=== PATIENT | male | born 1970 | race Caucasian/White ===

== ENCOUNTER 2021-04-16 06:43 | Emergency (ER) | payer BC ==
[~2021-04-16 06:43] MED LIST: AUGMENTIN 875-1 EACH PO; FLONASE 0.05% N16 GM; IBUPROFEN600 MG PO; MOBIC7.5 MG PO; NORCO 5-325 TA1 EACH PO; NORFLEX 100 MG100 MG PO; PSEUDOEPHEDRINE60 MG PO; ULTRAM50 MG PO; Voltaren Gel 1% TOP
[2021-04-16] MEDS ORDERED: CYCLOBENZAPRINE5 MG PO (08:02)
[2021-04-16] MEDS ORDERED: NAPROSYN500 MG PO (08:02)
== END 2021-04-16 08:30 | disposition home or self-care (01) ==
LOC: ER1 06:43
DX: S39.012A Strain of muscle, fascia and tendon of lower back, initial encounter (principal); M51.37 Other intervertebral disc degeneration, lumbosacral region; F17.200 Nicotine dependence, unspecified, uncomplicated; X50.0XXA Overexertion from strenuous movement or load, initial encounter
CPT/HCPCS: 72100; 96372; 99283; J1885

== ENCOUNTER → 2021-07-14 | Outpatient (CLI) | payer BC ==
[~2021-07-14] MED LIST changes: +CYCLOBENZAPRINE5 MG PO; +NAPROSYN500 MG PO
[2021-07-14 12:25] LABS: HEMOGLOBIN 17.3 gm/dl (14.0-17.5); RED BLOOD COUNT 5.4 M/UL (4.20-5.50); WHITE BLOOD COUNT 10.7 K/UL (4.5-11.0)
[2021-07-14 12:53] LABS: BUN/CREATININE RATIO 18 (0-10)
== END ==
LOC: EROP 11:43
PROVIDERS: Emergency Medicine
DX: Z12.5 Encounter for screening for malignant neoplasm of prostate (principal); F52.21 Male erectile disorder
CPT/HCPCS: 36415; 80053; 84153; 84402; 84403; 84550; 85025

== ENCOUNTER 2022-03-07 06:52 | Emergency (ER) | payer SELFPAY ==
[2022-03-07 07:49] LABS: HEMOGLOBIN 16.7 gm/dl (14.0-17.5); WHITE BLOOD COUNT 11.2 K/UL (4.5-11.0)
[2022-03-07 08:20] LABS: BUN/CREATININE RATIO 31 (0-10)
== END 2022-03-07 11:40 | disposition home or self-care (01) ==
LOC: ER1 06:52
PROVIDERS: Family Medicine
DX: K40.90 Unilateral inguinal hernia, without obstruction or gangrene, not specified as recurrent (principal); F17.200 Nicotine dependence, unspecified, uncomplicated
CPT/HCPCS: 80053; 81001; 85025; 96374; 99284; J1885; Q9967

== ENCOUNTER 2022-03-18 00:06 | Emergency (ER) | payer OTHER | END 2022-03-18 01:47 | disposition home or self-care (01) | LOC: ER1 00:06 | DX: K40.90 Unilateral inguinal hernia, without obstruction or gangrene, not specified as recurrent (principal) | CPT/HCPCS: 96372; 99283; J1170 ==

== ENCOUNTER → 2022-03-24 | Day surgery (SDC) | payer OTHER ==
[~2022-03-24] MED LIST changes: +HYDROCODONE-AC1 EACH PO
== END | disposition home or self-care (01) ==
LOC: OR 05:34
DX: K40.90 Unilateral inguinal hernia, without obstruction or gangrene, not specified as recurrent (principal); F17.210 Nicotine dependence, cigarettes, uncomplicated
CPT/HCPCS: C1781; J0690; J1100; J1170; J1885; J2001; J2250; J2405; J2704; J3010; J7030; J7120

== ENCOUNTER 2022-03-25 21:54 | Emergency (ER) | payer OTHER ==
[2022-03-25 22:38] LABS: HEMOGLOBIN 15.2 gm/dl (14.0-17.5); RED BLOOD COUNT 4.63 M/UL (4.20-5.50); WHITE BLOOD COUNT 10.9 K/UL (4.5-11.0)
[2022-03-25 23:02] LABS: BUN/CREATININE RATIO 15 (0-10)
== END 2022-03-26 01:00 | disposition home or self-care (01) ==
LOC: ER1 21:54
PROVIDERS: Family Medicine
DX: R50.82 Postprocedural fever (principal); F17.200 Nicotine dependence, unspecified, uncomplicated
CPT/HCPCS: 71046; 80053; 81001; 82550; 82553; 84484; 85025; 87040; 87086; 99283

== ENCOUNTER 2022-07-16 09:23 | Emergency (ER) | payer BC ==
[2022-07-16] MEDS ORDERED: BACTRIM DS TAB1 EACH PO (11:24)
[2022-07-16] MEDS ORDERED: CEPHALEXIN500 MG PO (11:24)
== END 2022-07-16 11:37 | disposition home or self-care (01) ==
LOC: ER1 09:23
DX: K13.0 Diseases of lips (principal); J02.9 Acute pharyngitis, unspecified; F17.200 Nicotine dependence, unspecified, uncomplicated; Z20.822 Contact with and (suspected) exposure to COVID-19
CPT/HCPCS: 87081; 87880; 99283; U0002